=== PATIENT | female | born 1995 | race Caucasian/White ===

== ENCOUNTER 2017-10-10 04:02 | Emergency (ER) | payer BC ==
[~2017-10-10] VITALS: Ht 170.2 cm; Wt 73.7 kg
[2017-10-10 04:07] VITALS: TEMP 36.4; Ht 170.2 cm; Wt 73.7 kg
[2017-10-10] MEDS ORDERED: ONDANSETRON INJ 2 MG/ML 2 ML VIAL ONE (04:15)
[2017-10-10] MEDS ORDERED: BCPILLS PO (04:33)
[2017-10-10] MEDS ORDERED: ESCI1TAB6 PO (04:34)
[2017-10-10] MEDS ORDERED: SODIUM CHLORIDE 0.9% 1000ML 1,000 ML IV STA ×2 (04:35→05:15)
--- NOTE | 2017-10-10 04:40 | EMERGENCY ROOM VISIT NOTE ---
History Report prepared by Rayshawn: Magda Watson Under the Supervision of: Christine MaddoxO. First contact with patient: 04:16 Chief Complaint: ABDOMINAL PAIN Stated Complaint: LFT ABDOMINAL PAIN-SHARP/STABBING,VOMITING,DIARRHE Nursing Triage Summary: Patient reports abdominal pain, nausea, vomiting, and diarrhea began approx 0100 today. History of Present Illness The patient is a 22 year old female who presents to the Emergency Room with complaints of persistent abdominal pain that started about 3 hours ago. The patient rates her pain a 8/10 in severity. She states she was beginning to get upper abdominal pain around 1 am so she went to lay down but it did not help. She notes she went to the bathroom and vomited "violently". She states she went back into her room after 5-10 minutes but the pain did not get better. She reports she had a bowel movement but was not sure if it was diarrhea. She states she has been having chills but is unsure if she had a fever. The patient denies any back pain. She also denies any new medications, recent travels, or eating any odd food yesterday. Source of History: patient Onset: abour 3 hours ago Position: other (global) Symptom Intensity: 8/10 Timing: other (persistent) Associated Symptoms: + chills, + vomiting, No back pain Review of Systems See HPI for pertinent positives & negatives. A total of 10 systems reviewed and were otherwise negative. Past Medical & Surgical No pertinent past medical or surgical history. Family History No pertinent family history Social History Smoking Status: Never Smoker Marital Status: single Housing Status: lives with roommate Occupation Status: [employer] student Current/Historical Medications Scheduled Control Pills ( Control Pills), 1 TAB PO DAILY Escitalopram Oxalate (Lexapro), 5 MG PO DAILY Allergies Coded Allergies: No Known Allergies (Unverified , 10/10/17) Physical Exam Vital Signs Date Time Temp Pulse Resp B/P (MAP) Pulse Ox O2 Delivery O2 Flow Rate FiO2 10/10/17 10:00 88 16 95/51 96 10/10/17 08:49 90 18 92/41 96 Room Air 10/10/17 07:40 86 16 105/73 97 Room Air 10/10/17 06:25 106 18 89/46 95 Room Air 10/10/17 04:29 100 10/10/17 04:07 36.4 114 28 89/49 99 Room Air Physical Exam GENERAL: alert, well appearing, well nourished, no distress, non-toxic EYE EXAM: normal conjunctiva, PERRL and EOM's grossly intact OROPHARYNX: no exudate, no erythema, lips, buccal mucosa, and tongue normal and very dry mucous membranes NECK: supple, no nuchal rigidity, no adenopathy, non-tender LUNGS: Clear to auscultation. Normal chest wall mechanics, no wheezes/rhonchi/ rales HEART: no murmurs, S1 normal and S2 normal ABDOMEN: mildly diffused tenderness, normo-active bowel sounds, no masses, no rebound or guarding. BACK: Back is symmetrical on inspection and there is no deformity, no midline tenderness, no CVA tenderness. SKIN: no rashes and no bruising UPPER EXTREMITIES: upper extremities are grossly normal. Normal range of motion and normal pulses LOWER EXTREMITIES: No pitting edema. Normal range of motion and normal pulses NEURO: Cranial nerves 2 through 12 grossly intact, grossly normal strength and sensory testing, no facial droop, normal speech, no ataxia Medical Decision & Procedures ER Provider Diagnostic Interpretation: Radiology results have been interpreted by the radiologist and reviewed by me. CHEST X-RAY: No cardiomegaly, no effusion, no wide mediastinum, no focal consolidation. ABDOMINAL X-RAY: Scant scattered air fluid levels. Umbilical piercing noted. No evidence of SBO. No free air. Laboratory Results 10/10/17 04:20 Red Blood Count 5.13, Mean Corpuscular Volume 84.4, Mean Corpuscular Hemoglobin 28.5, Mean Corpuscular Hemoglobin Concent 33.7, Mean Platelet Volume 10.2, Neutrophils (%) (Auto) 81.7, Lymphocytes (%) (Auto) 9.4, Monocytes (%) (Auto) 7.6, Eosinophils (%) (Auto) 0.8, Basophils (%) (Auto) 0.2, Neutrophils # (Auto) 11.37, Lymphocytes # (Auto) 1.31, Monocytes # (Auto) 1.06, Eosinophils # (Auto) 0.11, Basophils # (Auto) 0.03 10/10/17 04:20 10/10/17 06:04 Test 10/10/17 04:20 10/10/17 06:04 White Blood Count 13.92 K/uL (4.8-10.8) Red Blood Count 5.13 M/uL (4.2-5.4) Hemoglobin 14.6 g/dL (12.0-16.0) Hematocrit 43.3 % (37-47) Mean Corpuscular Volume 84.4 fL (80-100) Mean Corpuscular Hemoglobin 28.5 pg (25-34) Mean Corpuscular Hemoglobin Concent 33.7 g/dl (32-36) Platelet Count 348 K/uL (130-400) Mean Platelet Volume 10.2 fL (7.4-10.4) Neutrophils (%) (Auto) 81.7 % Lymphocytes (%) (Auto) 9.4 % Monocytes (%) (Auto) 7.6 % Eosinophils (%) (Auto) 0.8 % Basophils (%) (Auto) 0.2 % Neutrophils # (Auto) 11.37 K/uL (1.4-6.5) Lymphocytes # (Auto) 1.31 K/uL (1.2-3.4) Monocytes # (Auto) 1.06 K/uL (0.11-0.59) Eosinophils # (Auto) 0.11 K/uL (0-0.5) Basophils # (Auto) 0.03 K/uL (0-0.2) RDW Standard Deviation 37.8 fL (36.4-46.3) RDW Coefficient of Variation 12.3 % (11.5-14.5) Immature Granulocyte % (Auto) 0.3 % Immature Granulocyte # (Auto) 0.04 K/uL (0.00-0.02) Anion Gap 10.0 mmol/L (3-11) Est Creatinine Clear Calc Drug Dose 75.3 ml/min Estimated GFR () 79.0 Estimated GFR (Non- 68.2 BUN/Creatinine Ratio 19.0 (10-20) Calcium Level 9.3 mg/dl (8.5-10.1) Total Bilirubin 0.7 mg/dl (0.2-1) Alanine Aminotransferase (ALT/SGPT) 32 U/L (12-78) Alkaline Phosphatase 49 U/L (45-117) Total Protein 9.1 gm/dl (6.4-8.2) Albumin 4.0 gm/dl (3.4-5.0) Globulin 5.1 gm/dl (2.5-4.0) Albumin/Globulin Ratio 0.8 (0.9-2) Lipase 220 U/L (73-393) Aspartate Amino Transf (AST/SGOT) 17 U/L (15-37) Human Chorionic Gonadotropin, Qual NEG (NEG) Laboratory results per my review. Medications Administered Medications (Trade) Dose Ordered Sig/Marjan Route Start Time Stop Time Status Last Admin Dose Admin Ondansetron HCl (Zofran Inj) 4 mg STK-MED ONCE .ROUTE 10/10/17 04:15 10/10/17 04:16 DC 10/10/17 04:15 4 MG Sodium Chloride 1,000 ml @ 999 mls/hr Q1H1M STAT IV 10/10/17 04:35 10/10/17 05:35 DC 10/10/17 04:35 999 MLS/HR Sodium Chloride 1,000 ml @ 999 mls/hr Q1H1M STAT IV 10/10/17 05:15 10/10/17 06:15 DC 10/10/17 05:25 999 MLS/HR Dicyclomine HCl (Bentyl Tab) 20 mg NOW STAT PO 10/10/17 06:47 10/10/17 06:48 DC 10/10/17 07:39 20 MG Ketorolac Tromethamine (Toradol Inj) 30 mg NOW STAT IV 10/10/17 06:47 10/10/17 06:48 DC 10/10/17 07:40 30 MG ED Course 0416: The patient was evaluated in room A9B. A complete history and physical exam was performed. 0415: Zofran Inj 4 mg .ROUTE. 0435: Sodium Chloride 1000 ml @ 999 mls/hr IV. 0515: Sodium Chloride 1000 ml @ 999 mls/hr IV. 0626: I updated the patient. She looks much better. She has no recurring vomiting or diarrhea. She is tolerating ice chips and still has some abdominal pain. 0647: Toradol Inj 30 mg IV, Bentyl Tab 20 mg PO. 0800: Patient tolerating ice chips and states she is feeling better. Additional IV fluids still running. 0845: No recurrent vomiting or diarrhea. Patient's blood pressure improved with supine, however drop slightly when laying lateral recumbent. Patient's third liter of IV fluids running. If patient continues to look well following administration of IV fluids and has no recurrent symptoms, will plan for discharge. Medical Decision Differential diagnosis: Etiologies such as gastroenteritis, food borne illness, infections, appendicitis , diverticulitis, inflammatory bowel disease, obstruction, GI bleed, biliary pathology, as well as others were entertained. Patient improved here following administration of IV fluids. Patient presented with nausea vomiting and diarrhea, most likely viral syndrome or food borne illness. Patient's blood pressure improved with IV fluids, however would intermittently drop one patient was lying in a lateral recumbent position. Labs and x-rays reassuring and patient felt improved here. Patient was tolerating by mouth and verbalized improving following medications and IV fluids. I do not suspect bacteremia/sepsis. Patient with no other symptoms to suggest occult UTI/pyelonephritis. Patient with no other symptoms and presentation not consistent with meningitis/encephalitis, pericarditis/ myocarditis, cardiac tamponade, pneumothorax, pneumonia. Patient with no other risk factors for mesenteric ischemia. Doubt significant infectious colitis, bowel obstruction, diverticulitis, volvulus, perforation, GI bleed. Discussed with patient close follow-up as a precaution, symptoms to watch and return for, hydration and diet over the next several days, she verbalized understanding was agreeable with plan. Medication Reconcilliation Current Medication List: was personally reviewed by me Blood Pressure Screening Patient's blood pressure: Low blood pressure Impression Primary Impression: Nausea vomiting and diarrhea Additional Impressions: Dehydration Abdominal pain Scribe Attestation The scribe's documentation has been prepared under my direction and personally reviewed by me in its entirety. I confirm that the note above accurately reflects all work, treatment, procedures, and medical decision making performed by me. Departure Information Dispostion Home / Self-Care Referrals No Doctor, Assigned (PCP) Patient Instructions My [facility] Additional Instructions Please rest and sip clear liquids at frequent intervals today. You may use a nausea medication as prescribed. Please eat a bland diet as tolerated. If you develop any recurrent vomiting, have worsening diarrhea, noticed blood in your vomit or stool, develop fevers and chills, worsening abdominal pain, dizziness or episodes of passing out, or you've any other new concerns, please return the emergency room. Problem Qualifiers Additional Impressions: Abdominal pain Abdominal location: generalized Qualified Codes: R10.84 - Generalized abdominal pain
[2017-10-10 05:32] LABS: BASO % 0.2 %; BASO ABS # 0.03 K/uL (0-0.2); EOS % 0.8 %; EOS ABS # 0.11 K/uL (0-0.5); HEMATOCRIT 43.3 % (37-47); HEMOGLOBIN 14.6 g/dL (12.0-16.0); IG# 0.04 K/uL (0.00-0.02); LYMPH % 9.4 %; LYMPH ABS # 1.31 K/uL (1.2-3.4); MEAN CELL VOLUME 84.4 fL (80-100); MEAN CORPUSCULAR HEMOGLOBIN 28.5 pg (25-34); MEAN CORPUSCULAR HGB CONC 33.7 g/dl (32-36); MEAN PLATELET VOLUME 10.2 fL (7.4-10.4); MONO % 7.6 %; MONO ABS # 1.06 K/uL (0.11-0.59); NEUT % 81.7 %; NEUT ABS # 11.37 K/uL (1.4-6.5); PLATELET COUNT 348 K/uL (130-400); RED CELL DISTRIBUTION WIDTH CV 12.3 % (11.5-14.5); RED CELL DISTRIBUTION WIDTH SD 37.8 fL (36.4-46.3); WHITE BLOOD COUNT 13.92 K/uL (4.8-10.8)
[2017-10-10 05:53] LABS: CALCIUM 9.3 mg/dl (8.5-10.1); CREATININE 1.14 mg/dl (0.60-1.20)
[2017-10-10 05:57] LABS: TOTAL PROTEIN 9.1 gm/dl (6.4-8.2)
[2017-10-10 06:24] LABS: POTASSIUM 3.7 mmol/L (3.5-5.1)
[2017-10-10] MEDS ORDERED: DICYCLOMINE HCL 20 MG TAB PO STA (06:47)
[2017-10-10] MEDS ORDERED: KETOROLAC TROMETHAMINE 30 MG/ML VIAL IV STA (06:47)
--- NOTE | 2017-10-10 06:50 | DIAGNOSTIC IMAGING REPORT ---
ABDOMEN 2VIEW W/PA CHEST RTN CLINICAL HISTORY: n/v/d nausea. Vomiting. COMPARISON STUDY: No previous studies for comparison. FINDINGS: The soft tissues, psoas shadows, renal outlines and intestinal gas pattern appear normal. There is no evidence for bowel obstruction. There is no evidence for free intraperitoneal air. No abnormal abdominal calcifications are seen. A frontal view of the chest was performed and is unremarkable. IMPRESSION: Normal study. The above report was generated using voice recognition software. It may contain grammatical, syntax or spelling errors. Electronically signed by: Reece Davis M.D. 10/10/2017 6:48 AM Dictated Date/Time: 10/10/2017 6:46 AM
[2017-10-10] MEDS ORDERED: ONDANSETRON HOME PACK 4MG OD TAB PO ONE (08:45)
[2017-10-10 10:00] VITALS: BP 95/51; PULSE 88; O2SAT 96
== END 2017-10-10 10:00 | disposition home or self-care (01) ==
LOC: C.EDB 04:03 → C.EDA 10:00
DX: E86.0 Dehydration (principal); R11.2 Nausea with vomiting, unspecified; R10.84 Generalized abdominal pain; R19.7 Diarrhea, unspecified